=== PATIENT | female | born 1940 | race Hispanic/Latino ===

== ENCOUNTER 2021-06-15 10:19 | Outpatient (CLI) | payer MEDICARE | END 2021-06-15 10:20 | disposition home or self-care (01) | LOC: CSHMRI 10:19 | PROVIDERS: ATTEND Neurological Surgery | DX: M50.30 Other cervical disc degeneration, unspecified cervical region (principal); M47.812 Spondylosis without myelopathy or radiculopathy, cervical region | CPT/HCPCS: 72052; 72141 ==

== ENCOUNTER 2025-04-15 09:04 | Outpatient (CLI) | payer OTHER | END 2025-04-15 09:05 | disposition home or self-care (01) | LOC: CSHCT 09:04 | PROVIDERS: ATTEND Family Medicine | DX: E22.2 Syndrome of inappropriate secretion of antidiuretic hormone (principal) | CPT/HCPCS: 71250 ==